=== PATIENT | female | born 1990 ===

== ENCOUNTER 2022-04-21 14:23 | Outpatient (CLI) | payer OTHER ==
[2022-04-21] MEDS ORDERED: VITAMIN C1000 MG PO (14:32)
[2022-04-21] MEDS ORDERED: PRENATAL + DHA1 EAC1 PO (14:33)
== END 2022-04-21 15:28 | disposition home or self-care (01) ==
LOC: OBS/DEL 14:23
PROVIDERS: ATTEND Student in an Organized Health Care Education/Training Program
DX: O47.1 False labor at or after 37 completed weeks of gestation (principal); Z3A.39 39 weeks gestation of pregnancy

== ENCOUNTER 2022-04-22 13:15 | Inpatient (IN) | payer OTHER ==
[~2022-04-22] VITALS: Ht 175.3 cm; Wt 95.3 kg
[~2022-04-22 13:15] MED LIST: PRENATAL + DHA1 EAC1 PO; VITAMIN C1000 MG PO
[2022-04-27] MEDS ORDERED: NAPR500T14 PO (11:19)
== END 2022-04-27 12:54 | disposition home or self-care (01) | DRG 807 ==
LOC: EDUNIT# 13:15 → LDR 04-25 06:43 → OB/GYN 04-25 06:43
PROVIDERS: ADMIT Obstetrics & Gynecology; ATTEND Obstetrics & Gynecology
PROC: 10E0XZZ Delivery of Products of Conception, External Approach (ICD-10-PCS; principal; 2022-04-25)
PROC: 0KQM0ZZ Repair Perineum Muscle, Open Approach (ICD-10-PCS; 2022-04-25)
PROC: 3E033VJ Introduction of Other Hormone into Peripheral Vein, Percutaneous Approach (ICD-10-PCS; 2022-04-25)
PROC: 4A1HXCZ Monitoring of Products of Conception, Cardiac Rate, External Approach (ICD-10-PCS; 2022-04-25)
DX: O70.1 Second degree perineal laceration during delivery (principal); Z37.0 Single live birth; Z3A.39 39 weeks gestation of pregnancy; Z20.822 Contact with and (suspected) exposure to COVID-19